=== PATIENT | female | born 1990 | race Caucasian/White ===

== ENCOUNTER 2016-11-25 02:49 | Emergency (ER) | payer OTHER ==
[2016-11-25] MEDS ORDERED: HYDROmorphone HCL CARPU-JECT 1 MG/1 ML DISP.SYRIN IVPUSH ONE ×2 (03:16→04:20)
[2016-11-25] MEDS ORDERED: ONDANSETRON 4 MG/2 ML VIAL IVPUSH ONE (03:16)
[2016-11-25] MEDS ORDERED: HYDROmorphone HCL CARPU-JECT 1 MG/1 ML DISP.SYRIN ONE ×2 (03:28→04:35)
[2016-11-25] MEDS ORDERED: ONDANSETRON 4 MG/2 ML VIAL ONE ×2 (03:29→04:35)
[2016-11-25 03:47] LABS: BASOPHIL 0.5 % (0-2.0); EOSINOPHIL 0.5 % (0-4.5); MCH 30.3 pg (25.7-33.7); MCHC 35.4 g/dl (32.0-36.0); MEAN CELL VOLUME 85.7 fl (80-96); MEAN PLT VOLUME 8.5 fl (7.5-11.1); NEUTROPHILS 79.6 % (42.8-82.8); PLATELET COUNT 292 K/MM3 (134-434); RDW 12.3 % (11.6-15.6); WHITE BLOOD COUNT 12.3 K/mm3 (4.0-10.0)
[2016-11-25 04:08] LABS: ALK PHOS 55 U/L (45-117); ANION GAP 9 (8-16); BILIRUBIN,TOTAL 0.4 mg/dL (0.2-1.0); CALCIUM 9.4 mg/dL (8.5-10.1); CO2 27 mmol/L (21-32); COCKROFT - GAULT 119.9435; CREATININE 0.6 mg/dL (0.55-1.02); GLUCOSE,RANDOM 114 mg/dL (74-106); SGOT/AST 19 U/L (15-37); SGPT/ALT 27 U/L (12-78); TOT PROT 7.8 g/dl (6.4-8.2)
--- NOTE | 2016-11-25 04:17 | PDOC ---
[id number] 4d STOMACH PAIN/VOMITING Time Seen by Provider: 11/25/16 03:15 - History of Present Illness Initial Comments: 11/25/16 03:53 CHIEF COMPLAINT: vomiting HISTORY OF PRESENT ILLNESS: 26 yo F with no significant PMH presents to ED with vomiting and severe epigastric pain x 2 days. Patient states that two evenings ago she started vomiting after eating "normal things like chicken and rice." She states the pain feels like it is going up and down her stomach, and that she had one episode of diarrhea yesterday but none today. She has been vomiting "constantly all day" today, "too many times to count", last episode after arrival here in the ED. Last LMP was one week ago. No recent travel or sick contacts. PAST MEDICAL HISTORY: Denies past medical history FAMILY HISTORY: Denies SOCIAL HISTORY: Denies tobacco, alcohol, illicit drug use. SURGICAL HISTORY: Denies ALLERGIES: No known drug allergies REVIEW OF SYSTEMS General/Constitutional: Denies fever or chills. Denies weakness, weight change. HEENT: Denies change in vision. Denies ear pain or discharge. Denies sore throat. Cardiovascular: Denies chest pain or shortness of breath. Respiratory: Denies cough, wheezing, or hemoptysis. Gastrointestinal: Vomiting x 3 days. One episode of diarrhea yesterday. Denies rectal bleeding. Genitourinary: Denies dysuria, frequency, or change in urination. Musculoskeletal: Denies joint or muscle swelling or pain. Denies neck or back pain. Skin and breasts: Denies rash or easy bruising. PHYSICAL EXAM General Appearance: Well-appearing, appropriately dressed. No apparent distress , no intoxication. HEENT: EOMI, PERRLA, normal ENT inspection, normal voice, TMs normal, pharynx normal. No conjunctival pallor. No photophobia, scleral icterus. Respiratory/Chest: Lungs CTAB. Cardiovascular: RRR. S1, S2. Vascular Pulses: Dorsalis-Pedis (R): 2+, Dorsalis-Pedis (L): 2+ Gastrointestinal/Abdominal: Tenderness to epigastrum and LUQ. Normal bowel sounds. Abdomen soft, non-distended. No organomegaly, pulsatile mass, guarding, hernia, hepatomegaly, splenomegaly. Musculoskeletal/Extremities: Normal inspection. FROM of all extremities, normal capillary refill. Pelvis Stable. No CVA tenderness. No tenderness to extremities, pedal edema, swelling, erythema or deformity. Integumentary: Appropriate color, dry, warm. No cyanosis, erythema, jaundice or rash Neurologic: epic willow specialist II-XII intact. Fully oriented, alert. Appropriate mood/affect. Motor strength 5/5. No appreciable EOM palsy, facial droop or sensory deficit. Past History - Past Medical History Allergies/Adverse Reactions: Allergies Allergy/AdvReac Type Severity Reaction Status Date / Time No Known Allergies Allergy Verified 11/25/16 03:15 Home Medications: Ambulatory Orders Famotidine [Pepcid -] 20 mg PO BID #14 tablet 11/25/16 Asthma: No Cancer: No Cardiac Disorders: No Diabetes: No HTN: No Seizures: No Thyroid Disease: No - Psycho/Social/Smoking Cessation Hx Suicidal Ideation: Yes Smoking History: Never smoked Hx Alcohol Use: No Drug/Substance Use Hx: No Substance Use Type: None Hx Substance Use Treatment: No *Physical Exam - Vital Signs Last Vital Signs Temp Pulse Resp BP Pulse Ox 97.5 F L 73 20 93/63 100 11/25/16 03:16 11/25/16 03:16 11/25/16 03:16 11/25/16 03:16 11/25/16 03:16 ED Treatment Course - LABORATORY CBC & Chemistry Diagram: 11/25/16 03:30 11/25/16 03:30 - ADDITIONAL ORDERS Additional order review: 11/25/16 03:30 RBC 4.54 D MCV 85.7 MCHC 35.4 RDW 12.3 D MPV 8.5 Neutrophils % 79.6 Lymphocytes % 15.1 Monocytes % 4.3 Eosinophils % 0.5 Basophils % 0.5 D - Medications Given in the ED: ED Medications Discontinued Medications Generic Name Dose Route Start Last Admin Trade Name Freq PRN Reason Stop Dose Admin Hydromorphone HCl 0.5 mg 11/25/16 03:16 11/25/16 03:39 Dilaudid Injection - IVPUSH 11/25/16 03:17 0.5 mg ONCE ONE Administration Ondansetron HCl 4 mg 11/25/16 03:16 11/25/16 03:39 Zofran Injection IVPUSH 11/25/16 03:17 4 mg ONCE ONE Administration Medical Decision Making - Medical Decision Making 11/25/16 05:23 26 yo F with no PMH presents to ED with epigastric pain and vomiting x 2 days. -CBC, CMP, lipase -UA, Ucx, UPreg -IVF, Zofran -Dilaudid 0.5 mg Patient reports pain subsided after administration of Dilaudid but is returning. -Dilaudid 0.5mg Labs: WBC 12.3, otherwise unremarkable. Patient is tearful and reports that she is still nauseous. Will scan patient due to intractable nature and severity of pain. -Reglan, Benadryl, Maalox, Pepcid -Abd and pelvis CT w/ contrast Awaiting CT. Case discussed in detail with oncoming emergency provider including history, physical exam and ancillary studies. In brief, this patient is being seen in the ED for a chief complaint of: abd pain, vomiting I have completed the initial assessment interview note and have ordered the following labs: CBC, CMP, lipase I have reviewed the following results: all labs Pending results: CT Plan for disposition as follows: pending Oncoming NPA Ervin has assumed care for the patient and will complete the evaluation and treatment. *DC/Admit/Observation/Transfer Diagnosis at time of Disposition: Epigastric abdominal pain Vomiting Qualifiers: Vomiting type: unspecified Vomiting Intractability: non-intractable Nausea presence: with nausea Qualified Code(s): R11.2 - Nausea with vomiting, unspecified - Discharge Dispostion Disposition: HOME Condition at time of disposition: Improved - Prescriptions Prescriptions: Famotidine [Pepcid -] 20 mg PO BID #14 tablet - Referrals Referrals: Oskar Farr MD [Staff Physician] - Tino Lock MD [Staff Physician] - - Patient Instructions Printed Discharge Instructions: [place] Diet, DI for Vomiting -- Adult, DI for Epigastric Pain Additional Instructions: Discharge Instructions: -Take medication as prescribed -Eat a bland diet until symptoms improve -Follow up with referred physicians as soon as possible -Return to the ER with any worsening or concerning symptoms
[2016-11-25 04:41] LABS: URINE APPEARANCE CLEAR; URINE BILIRUBIN NEGATIVE (NEGATIVE); URINE BLOOD NEGATIVE (NEGATIVE); URINE COLOR YELLOW; URINE GLUCOSE (UA) NEGATIVE (NEGATIVE); URINE KETONE 1+ (NEGATIVE); URINE LEUK ESTERASE NEGATIVE (NEGATIVE); URINE NITRITE NEGATIVE (NEGATIVE); URINE UROBILINOGEN NEGATIVE E.U./dl (0.2-1.0)
[2016-11-25 04:43] LABS: URINE PROTEIN 1+ (NEGATIVE)
[2016-11-25 04:47] LABS: URINE MUCUS MANY; URINE RBC 2 /hpf (0-3); URINE WBC 5 /hpf (3-5)
[2016-11-25] MEDS ORDERED: METOCLOPRAMIDE HCL INJECTION 10 MG/2 ML VIAL IVPB ONE (05:20)
[2016-11-25] MEDS ORDERED: FAMOTIDINE 20 MG/50 ML IVPB 50 ML IVPB ONE ×2 (05:20→05:33)
[2016-11-25] MEDS ORDERED: MAG HYDROX/AL HYDROX/SIMETH 30 ML UNIT-DOSE CUP PO ONE (05:26)
[2016-11-25] MEDS ORDERED: MAG HYDROX/AL HYDROX/SIMETH 30 ML UNIT-DOSE CUP ONE (05:33)
[2016-11-25] MEDS ORDERED: METOCLOPRAMIDE HCL INJECTION 10 MG/2 ML VIAL ONE (05:33)
[2016-11-25 07:04] VITALS: BP 104/57; PULSE 76; TEMP 97.6
--- NOTE | 2016-11-25 07:15 | PDOC ---
ED Treatment Course - LABORATORY CBC & Chemistry Diagram: 11/25/16 03:30 11/25/16 03:30 - ADDITIONAL ORDERS Additional order review: Laboratory Results 11/25/16 11/25/16 11/25/16 04:30 03:30 03:30 Sodium 140 Potassium 3.9 Chloride 104 Carbon Dioxide 27 D Anion Gap 9 BUN 12 D Creatinine 0.6 D Creat Clearance w eGFR > 60 Random Glucose 114 H D Calcium 9.4 Total Bilirubin 0.4 AST 19 ALT 27 Alkaline Phosphatase 55 Total Protein 7.8 Albumin 4.0 Lipase 200 Urine Color Yellow Urine Appearance Clear Urine pH 6.0 Ur Specific [place] 1.024 Urine Protein 1+ H Urine Glucose (UA) Negative Urine Ketones 1+ H Urine Blood Negative Urine Nitrite Negative Urine Bilirubin Negative Urine Urobilinogen Negative Ur Leukocyte Esterase Negative Urine RBC 2 Urine WBC 5 Ur Epithelial Cells Rare Urine Mucus Many Urine HCG, Qual Negative 11/25/16 03:30 RBC 4.54 D MCV 85.7 MCHC 35.4 RDW 12.3 D MPV 8.5 Neutrophils % 79.6 Lymphocytes % 15.1 Monocytes % 4.3 Eosinophils % 0.5 Basophils % 0.5 D - Medications Given in the ED: ED Medications Discontinued Medications Generic Name Dose Route Start Last Admin Trade Name Freq PRN Reason Stop Dose Admin Al Hydroxide/Mg Hydroxide 30 ml 11/25/16 05:26 11/25/16 05:50 Mylanta Oral Suspension - PO 11/25/16 05:27 30 ml ONCE ONE Administration Diphenhydramine HCl 25 mg 11/25/16 05:20 11/25/16 05:50 Benadryl Injection - IVPUSH 11/25/16 05:21 25 mg ONCE ONE Administration Hydromorphone HCl 0.5 mg 11/25/16 03:16 11/25/16 03:39 Dilaudid Injection - IVPUSH 11/25/16 03:17 0.5 mg ONCE ONE Administration Hydromorphone HCl 0.5 mg 11/25/16 04:20 11/25/16 04:44 Dilaudid Injection - IVPUSH 11/25/16 04:21 0.5 mg ONCE ONE Administration Famotidine/Sodium Chloride 50 mls @ 100 mls/hr 11/25/16 05:20 11/25/16 05:50 Pepcid 20 Mg Premixed Ivpb - IVPB 11/25/16 05:49 100 mls/hr ONCE ONE Administration Metoclopramide HCl 10 mg 11/25/16 05:20 11/25/16 05:50 Reglan Injection - IVPB 11/25/16 05:21 10 mg ONCE ONE Administration Ondansetron HCl 4 mg 11/25/16 03:16 11/25/16 03:39 Zofran Injection IVPUSH 11/25/16 03:17 4 mg ONCE ONE Administration Progress Note - Progress Note Progress Note: I have received report from JÚNIOR Joseph regarding this patient. Pt's initial chief complaint: vomiting and epigastric pain Pt's work up completed prior to sign out: labs, UA Pt treatment given from prior staff: Pepcid, reglan, benadryl, dilaudid Pt plan to be completed: Awaiting results of CT scan of abd/pelvis Dispo: Pending Medical Decision Making - Medical Decision Making A/P: 26 y/o afebrile female with no significant PMH c/o vomiting and epigastric pain x 2 days. The patient was initially evaluated by JÚNIOR Joseph. Labs and UA completed. Pt currently sleeping. Awaiting results of CT scan of abd/pelvis. CT scan abd/pelvis IMPRESSION: No acute pathology identified. No mass of inflammatory process seen. Left adnexal cyst measuring 2.4 x 1.8cm. No free fluid seen. The patient is asking for something to drink. The patient passed PO challenge without vomiting or recurrence of pain. Provided all results. Will discharge to home with rx for pepcid. Suggested bland diet until symptoms improve and PCP follow up. Pt instructed to return to the ER with any worsening or concerning symptoms. The patient verbalizes understanding of all instructions, has no further questions and is awaiting discharge. *DC/Admit/Observation/Transfer Diagnosis at time of Disposition: Epigastric abdominal pain Vomiting Qualifiers: Vomiting type: unspecified Vomiting Intractability: non-intractable Nausea presence: with nausea Qualified Code(s): R11.2 - Nausea with vomiting, unspecified - Discharge Dispostion Disposition: HOME Condition at time of disposition: Improved - Prescriptions Prescriptions: Famotidine [Pepcid -] 20 mg PO BID #14 tablet - Referrals Referrals: Oskar Farr MD [Staff Physician] - Tino Lock MD [Staff Physician] - - Patient Instructions Printed Discharge Instructions: DI for Epigastric Pain, DI for Vomiting -- Adult, [place] Diet Additional Instructions: Discharge Instructions: -Take medication as prescribed -Eat a bland diet until symptoms improve -Follow up with referred physicians as soon as possible -Return to the ER with any worsening or concerning symptoms
== END 2016-11-25 10:04 | disposition home or self-care (01) ==
LOC: JER 02:49
PROC: 3E033GC Introduction of Other Therapeutic Substance into Peripheral Vein, Percutaneous Approach (ICD-10-PCS; principal; 2016-11-25)
PROC: 3E033GC Introduction of Other Therapeutic Substance into Peripheral Vein, Percutaneous Approach (ICD-10-PCS; 2016-11-25)
PROC: 3E033NZ Introduction of Analgesics, Hypnotics, Sedatives into Peripheral Vein, Percutaneous Approach (ICD-10-PCS; 2016-11-25)
DX: R10.13 Epigastric pain (principal)
CPT/HCPCS: 36415; 74177-TC; 80053; 81003; 81015; 83690; 84703; 85025; 87086; 96365; 96375; 99282-25

== ENCOUNTER 2017-11-02 04:30 | Inpatient (IN) | payer OTHER ==
[~2017-11-02 04:30] MED LIST: DEXTROSE 5%-LACTATED RINGERS 1,000 ML IV SCH
[2017-11-02 05:32] LABS: BASO % 0.4 % (0-2.0); EOS % 0.7 % (0-4.5); HEMATOCRIT 32.2 % (32.4-45.2); HEMOGLOBIN 11.1 GM/dL (10.7-15.3); LYMPH % 16.5 % (8-40); MCH 30.1 pg (25.7-33.7); MCHC 34.5 g/dl (32.0-36.0); MEAN CELL VOLUME 87.4 fl (80-96); MEAN PLT VOLUME 9.8 fl (7.5-11.1); MONO % 6.2 % (3.8-10.2); NEUT % 76.2 % (42.8-82.8); PLATELET COUNT 174 K/MM3 (134-434); RBC 3.69 M/mm3 (3.60-5.2); RDW 13.6 % (11.6-15.6); WHITE BLOOD COUNT 10.8 K/mm3 (4.0-10.0)
[2017-11-02 05:44] LABS: PROTHROMBIN TIME (PATIENT) 11.3 SEC (9.98-11.88)
[2017-11-02 05:46] LABS: ACTIVATED PTT 26.9 SECONDS (26.9-34.4)
[2017-11-02 05:53] LABS: ANION GAP 13 (8-16); BLOOD UREA NITROGEN 8 mg/dL (7-18); CALCIUM 8.6 mg/dL (8.5-10.1); CHLORIDE 105 mmol/L (98-107); CO2 20 mmol/L (21-32); CREATININE 0.5 mg/dL (0.55-1.02); GLUCOSE,RANDOM 159 mg/dL (74-106); POTASSIUM 3.7 mmol/L (3.5-5.1); SODIUM 138 mmol/L (136-145)
[2017-11-02 05:57] VITALS: BMI 25.0
[2017-11-02] MEDS ORDERED: PROMETHAZINE HCL 25 MG/1 ML VIAL IVPB ONE (06:00)
[2017-11-02] MEDS ORDERED: BUTORPHANOL TARTRATE 1 MG/ML VIAL IVPB ONE (06:00)
[2017-11-02] MEDS ORDERED: BUTORPHANOL TARTRATE 1 MG/ML VIAL ONE ×2 (06:07)
[2017-11-02] MEDS ORDERED: PROMETHAZINE HCL 25 MG/1 ML VIAL ONE (06:07)
[2017-11-02] MEDS ORDERED: TUBERCULIN PPD 5 TU/0.1ML SYRINGE (IN PATIENT USE ONLY) ID ONE (09:00)
[2017-11-02] MEDS ORDERED: CITRIC ACID/SODIUM CITRATE 30 ML UNIT-DOSE CUP PO ONE (09:45)
[2017-11-02] MEDS ORDERED: ELECTROLYTE-148 SOLN 1,000 ML IV SCH (09:45)
--- NOTE | 2017-11-02 09:52 | HP ---
Past Medical History - Admission Chief Complaint: Labor pain History of Present Illness: 27 yo @ 38 weeks gestation, EDC 11/14/17, with prior , presents to L&D c/o labor pain. Patient desires . Upon examination cervix was found to be closed. She was given the option to go home until cervical dilation. Patient subsequently changed her mind and requested repeat . History Source: Patient, Family Member Limitations to Obtaining History: No Limitations - Past Medical History ...: 2 ...Para: 1 ...Term: 1 ...: 0 ...Spon : 0 ...Induced : 0 ...Multiple Gestation: 0 ...LMP: 02/07/17 ... Weeks Gestation by Dates: 38.2 ...EDC by Dates: 11/14/17 ...EDC by Sono: 11/14/17 - Past Surgical History Past Surgical History: Yes: Hx Myomectomy: No Hx Transabdominal Cerclage: No - Smoking History Smoking history: Never smoked Have you smoked in the past 12 months: No - Alcohol/Substance Use Hx Alcohol Use: No History of Substance Use: reports: None - Social History Usual Living Arrangement: Yes: With Spouse History of Recent Travel: No Home Medications - Allergies Allergies/Adverse Reactions: Allergies Allergy/AdvReac Type Severity Reaction Status Date / Time No Known Allergies Allergy Verified 11/02/17 05:15 - Home Medications Home Medications: Ambulatory Orders Vit No.130/Iron/Folic [ Vitamins] 1 each PO DAILY 11/02/17 Review of Systems - Review of Systems Constitutional: reports: No Symptoms Eyes: reports: No Symptoms HENT: reports: No Symptoms Neck: reports: No Symptoms Cardiovascular: reports: No Symptoms Respiratory: reports: No Symptoms Gastrointestinal: reports: No Symptoms Genitourinary: reports: Pain Breasts: reports: No Symptoms Reported Musculoskeletal: reports: No Symptoms Integumentary: reports: No Symptoms Neurological: reports: No Symptoms Endocrine: reports: No Symptoms Hematology/Lymphatic: reports: No Symptoms Psychiatric: reports: No Symptoms Pain Intensity: 7 Physical Exam - Maternity Vital Signs: Vital Signs Temperature 98.3 F 11/02/17 08:00 Pulse Rate 75 11/02/17 08:00 Respiratory Rate 20 11/02/17 08:00 Blood Pressure 106/55 11/02/17 08:00 O2 Sat by Pulse Oximetry (%) Constitutional: Yes: Well Nourished Eyes: Yes: Conjunctiva Clear HENT: Yes: Atraumatic Neck: Yes: Supple Cardiovascular: Yes: Regular Rate and Rhythm Lungs: Clear to auscultation - Abdominal Exam/OB Number of Fetuses: Single Presentation: Vertex Regularity: Irregular - Vaginal Exam/OB Vaginal Bleediing: Bloody Show Dilatation (cm): 0 Effacement (%): 50 Amniotic Membrane Status: Intact Station: -2 - Physical Exam Musculoskeletal: Yes: WNL Extremities: Yes: WNL ...Motor Strength: WNL Psychiatric: Yes: Alert, Oriented - Labs Lab Results: CBC, BMP 11/02/17 05:25 11/02/17 05:25 Problem List - Problems (1) Previous section complicating , antepartum condition or complication Code(s): O34.219 - MATERNAL CARE FOR UNSP TYPE SCAR FROM PREVIOUS DEL Assessment/Plan Previous in labor Admit to L&D Prep and shave Anesthesia to see patient
[2017-11-02] MEDS ORDERED: ePHEDrine SULFATE 50 MG/1 ML AMPULE ONE (10:09)
[2017-11-02] MEDS ORDERED: morphine SULFATE/Preservative Free 0.5 MG/ML (1cc Syringe) ONE (10:09)
[2017-11-02] MEDS ORDERED: PROPOFOL 20 ML ONE (10:10)
[2017-11-02] MEDS ORDERED: BUPIVACAINE 0.75% IN DEXTROSE/PF 2ML AMPULE NR ONE (10:12)
[2017-11-02] MEDS ORDERED: METHYLERGONOVINE MALEATE 0.2 MG/1 ML AMP IM PRN (11:01)
[2017-11-02] MEDS ORDERED: oxyCODONE HCL 5 MG TABLET PO PRN (11:01)
[2017-11-02] MEDS ORDERED: SIMETHICONE 80 MG TAB.CHEW (FP) PO PRN (11:01)
--- NOTE | 2017-11-02 11:04 | OP ---
Operative Note - Note: Operative Date: 11/02/17 Pre-Operative Diagnosis: Previous in labor Operation: Repeat Low Transverse Findings: Baby boy in OP position Post-Operative Diagnosis: Same as Pre-op Surgeon: Valarie Sood Wire Frame Lamp Shade Maker: Gregg Astudillo Anesthesia: Spinal Specimens Removed: Placenta Estimated Blood Loss (mls): 600
[2017-11-02] MEDS ORDERED: OXYTOCIN 20 UNITS in 0.9% NS 20 UNIT/1,000 ML INFUS.BAG IV SCH (11:15)
[2017-11-02] MEDS ORDERED: OXYTOCIN 20 UNITS in 0.9% NS 20 UNIT/1,000 ML INFUS.BAG IV ONE ×2 (11:18→19:35)
[2017-11-02] MEDS ORDERED: ONDANSETRON 4 MG/2 ML VIAL IVPUSH PRN (13:47)
[2017-11-02] MEDS ORDERED: morphine SULFATE/Preservative Free 0.5 MG/ML (1cc Syringe) EP ONE (13:47)
[2017-11-02] MEDS ORDERED: oxyCODONE HCL 5 MG TABLET PO ONE ×2 (15:00)
[2017-11-02] MEDS ORDERED: ACETAMINOPHEN 325 MG TABLET (FP) PO ONE ×2 (15:00)
[2017-11-02] MEDS ORDERED: IBUPROFEN 800 MG/8 ML IJ IVPB PRN (18:19)
[2017-11-02] MEDS: FERROUS SO4 325 MG TABLET (FP) PO SCH (22:12)
--- NOTE | 2017-11-03 07:17 | PN ---
Progress Note (SOAP) - Subjective Chief Complaint: Pt doing well - Current Medications Current Medications: Active Medications Bisacodyl (Dulcolax Suppository -) 10 mg RC PRN PRN PRN Reason: CONSTIPATION Diphenhydramine HCl (Benadryl Injection -) 25 mg IVPUSH Q4H PRN PRN Reason: Pruritis Ferrous Sulfate (Feosol -) 325 mg PO BID [facility] Last Admin: 11/02/17 22:12 Dose: Not Given Parenteral Electrolytes (Plasma-Lyte 148 -) 1,000 mls @ 125 mls/hr IV ASDIR [facility] Last Admin: 11/02/17 09:00 Dose: 125 mls/hr Oxytocin/Sodium Chloride (Normal Saline+20 Units Oxytocin -) 20 unit in 1,000 mls @ 125 mls/hr IV [facility] Last Admin: 11/02/17 11:20 Dose: 125 mls/hr Ibuprofen (Motrin -) 600 mg PO Q4H PRN PRN Reason: PAIN LEVEL 1 - 3 Ibuprofen (Caldolor Injection -) 800 mg IVPB Q6H PRN PRN Reason: FEVER Last Admin: 11/03/17 05:48 Dose: 800 mg Methylergonovine Maleate (Methergine Injection -) 0.2 mg IM Q4H PRN PRN Reason: Excessive Bleeding (L&D) Ondansetron HCl (Zofran Injection) 4 mg IVPUSH Q4H PRN PRN Reason: NAUSEA Oxycodone HCl (Roxicodone -) 5 mg PO Q4H PRN PRN Reason: PAIN LEVEL 4 - 6 Multivit/Folic Acid/Iron ( Vitamins (Sjr) -) 1 tab PO DAILY [facility] Simethicone (Mylicon -) 80 mg PO Q4H PRN PRN Reason: GAS - Objective Vital Signs: Vital Signs Temperature 98.9 F 11/03/17 05:55 Pulse Rate 90 11/03/17 05:55 Respiratory Rate 20 11/03/17 06:00 Blood Pressure 115/68 11/03/17 05:55 O2 Sat by Pulse Oximetry (%) 98 11/02/17 11:15 Constitutional: Yes: Well Nourished, No Distress Gastrointestinal: Yes: WNL, Normal Bowel Sounds ....Post : Yes: Uterus firm, Uterus non-tender Breast(s): Yes: WNL Musculoskeletal: Yes: WNL Extremities: Yes: WNL Wound/Incision: Yes: Clean/Dry, Dressing Dry and Intact Neurological: Yes: WNL, Alert, Oriented Labs Lab Results: CBC, BMP 11/02/17 05:25 11/02/17 05:25 Assessment/Plan POD1 CS Plan OOB Continue present managemment
[2017-11-03 09:06] LABS: BASO % 0.2 % (0-2.0); EOS % 0.6 % (0-4.5); HEMOGLOBIN 10.3 GM/dL (10.7-15.3); LYMPH % 8.3 % (8-40); MCH 29.4 pg (25.7-33.7); MCHC 33.4 g/dl (32.0-36.0); MEAN PLT VOLUME 9.2 fl (7.5-11.1); MONO % 6.9 % (3.8-10.2); PLATELET COUNT 169 K/MM3 (134-434); RBC 3.52 M/mm3 (3.60-5.2); RDW 13.8 % (11.6-15.6); WHITE BLOOD COUNT 15.8 K/mm3 (4.0-10.0)
[2017-11-03] MEDS: FERROUS SO4 325 MG TABLET (FP) PO SCH ×2 (10:05→21:04)
[2017-11-03] MEDS: PRENATAL VITAMINS W/ FOLIC ACID TABLET (FP) PO SCH (10:06)
[2017-11-03] MEDS ORDERED: BISACODYL 10 MG SUPP.RECT RC PRN (11:01)
[2017-11-03] MEDS: IBUPROFEN 600 MG TABLET (FP) PO PRN ×2 (11:56→19:40)
--- NOTE | 2017-11-03 13:36 | PN ---
Progress Note (short form) - Note Progress Note: Anesthesiology Post-op POD #1 s/p Repeat C/S under spinal. Pt. is doing well, has no complaints. She is able to ambulate and denies h/a. VSS. 27 y.o. s/p C/S with stable post-operative course. Continue management as per primary team.
[2017-11-03] MEDS ORDERED: DIPHTH,PERTUSS(ACELL),TET 0.5 ML DISP.SYRIN IM ONE (14:00)
--- NOTE | 2017-11-04 04:52 | PN ---
Post Progress Note - Subjective Subjective: 27 yo Para 2 status post repeat , seen and evaluated. Doing well. Post Day: 2 Type of Delivery: Repeat C/S Vital Signs: Vital Signs Temperature 98.2 F 11/03/17 21:00 Pulse Rate 97 H 11/03/17 21:00 Respiratory Rate 20 11/03/17 21:00 Blood Pressure 117/72 11/03/17 21:00 O2 Sat by Pulse Oximetry (%) 98 11/02/17 11:15 Breast Exam: Yes: Soft Uterus: Yes: Fundus Firm Incision: Yes: Dressing dry and intact Abdomen/GI: Yes: Abdomen soft, Tolerating PO Lochia: Yes: Rubra Lochia, amount: Small Extremities: Yes: Calves non-tender Perineum: Yes: Intact Activity: Ambulating - Labs Labs: CBC WBC 15.8 K/mm3 (4.0-10.0) H D 11/03/17 08:00 RBC 3.52 M/mm3 (3.60-5.2) L 11/03/17 08:00 Hgb 10.3 GM/dL (10.7-15.3) L 11/03/17 08:00 Hct 31.0 % (32.4-45.2) L 11/03/17 08:00 MCV 88.0 fl (80-96) 11/03/17 08:00 MCH 29.4 pg (25.7-33.7) 11/03/17 08:00 MCHC 33.4 g/dl (32.0-36.0) 11/03/17 08:00 RDW 13.8 % (11.6-15.6) 11/03/17 08:00 Plt Count 169 K/MM3 (134-434) 11/03/17 08:00 MPV 9.2 fl (7.5-11.1) 11/03/17 08:00 Neutrophils % 84.0 % (42.8-82.8) H 11/03/17 08:00 Lymphocytes % 8.3 % (8-40) D 11/03/17 08:00 Monocytes % 6.9 % (3.8-10.2) 11/03/17 08:00 Eosinophils % 0.6 % (0-4.5) 11/03/17 08:00 Basophils % 0.2 % (0-2.0) 11/03/17 08:00 Problem List - Problems (1) Previous section complicating , antepartum condition or complication Code(s): O34.219 - MATERNAL CARE FOR UNSP TYPE SCAR FROM PREVIOUS DEL (2) Status post repeat low transverse section Code(s): Z98.891 - HISTORY OF UTERINE SCAR FROM PREVIOUS SURGERY Assessment/Plan Status post repeat Ambulation Analgesia as needed Continue routine post op care
--- NOTE | 2017-11-04 04:55 | DS ---
Physical Exam-BUDGET COUNSELOR Vital Signs: Vital Signs Temperature 98.2 F 11/03/17 21:00 Pulse Rate 97 H 11/03/17 21:00 Respiratory Rate 20 11/03/17 21:00 Blood Pressure 117/72 11/03/17 21:00 O2 Sat by Pulse Oximetry (%) 98 11/02/17 11:15 Constitutional: Yes: Well Nourished Eyes: Yes: Conjunctiva Clear HENT: Yes: Atraumatic Neck: Yes: Supple Cardiovascular: Yes: Regular Rate and Rhythm Respiratory: Yes: Regular Gastrointestinal: Yes: Normal Bowel Sounds Pelvis: Yes: WNL External Genitalia: Yes: Normal Vaginal Exam: Yes: Normal Wound/Incision: Yes: Clean/Dry, Well Approximated, Dressing Dry and Intact Neurological: Yes: Alert, Oriented ...Motor Strength: WNL Psychiatric: Yes: Alert, Oriented Labs: CBC, BMP 11/03/17 08:00 11/02/17 05:25 Delivery - Delivery Type of Anesthesia: Spinal EBL (cc): 600 Delivery, Single - Stages of Labor Date of Delivery: 11/02/17 Time of Delivery: 10:35 Time Placenta Delivered: 10:36 - Condition of Drive In Teller/Field Marketing Lead Present: Yes Name: Eugenio Coles Gender: Male Weight: 5 lb 12 oz Position: OP Total Hours ROM (Hrs/Mins): 2mins - 1 Minute Total Score: 9 5 Minutes Total Score: 9 - [place] Feeding Plan Initial Plan: Elected not to breastfeed exclusively throughout hospitalization Discharge Summary Reason For Visit: ADMIT LABOR Current Active Problems Previous section complicating , antepartum condition or complication (Acute) Status post repeat low transverse section (Acute) Procedures: Principal: Repeat Low Transverse Hospital Course: Routine post op care Condition: Good - Instructions Diet, Activity, Other Instructions: Regular diet No driving, no lifting x 4 weeks F/U with MD in one week Disposition: HOME - Home Medications Comprehensive Discharge Medication List: Ambulatory Orders Vit No.130/Iron/Folic [ Vitamins] 1 each PO DAILY 11/02/17
[2017-11-04] MEDS: PRENATAL VITAMINS W/ FOLIC ACID TABLET (FP) PO SCH (10:00)
[2017-11-04] MEDS: FERROUS SO4 325 MG TABLET (FP) PO SCH ×3 (10:00→22:33)
[2017-11-04] MEDS ORDERED: DIPHTH,PERTUSS(ACELL),TET 0.5 ML DISP.SYRIN IM ONE (12:00)
[2017-11-04] MEDS: IBUPROFEN 600 MG TABLET (FP) PO PRN ×2 (12:35→20:18)
[2017-11-05 08:38] LABS: BASO % 0.6 % (0-2.0); EOS % 3.7 % (0-4.5); HEMATOCRIT 27.5 % (32.4-45.2); HEMOGLOBIN 9.5 GM/dL (10.7-15.3); LYMPH % 18.3 % (8-40); MCH 30.2 pg (25.7-33.7); MCHC 34.4 g/dl (32.0-36.0); MEAN CELL VOLUME 87.9 fl (80-96); MEAN PLT VOLUME 9.2 fl (7.5-11.1); MONO % 7.3 % (3.8-10.2); NEUT % 70.1 % (42.8-82.8); PLATELET COUNT 187 K/MM3 (134-434); RBC 3.13 M/mm3 (3.60-5.2); RDW 13.5 % (11.6-15.6); WHITE BLOOD COUNT 8.9 K/mm3 (4.0-10.0)
[2017-11-05] MEDS: FERROUS SO4 325 MG TABLET (FP) PO SCH (09:52)
[2017-11-05] MEDS: PRENATAL VITAMINS W/ FOLIC ACID TABLET (FP) PO SCH (09:52)
[2017-11-05] MEDS: IBUPROFEN 600 MG TABLET (FP) PO PRN (09:52)
[2017-11-05 12:48] VITALS: BP 110/74; PULSE 89; TEMP 98.1
--- NOTE | 2017-11-05 13:28 | PATH ---
Surgical Pathology Report Patient Name: BRITT BUSTILLO Med. Rec. 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 Specimen(s) Received PLACENTA Clinical History , 38.2 weeks, section 10/2012 for nonreassuring heart rate Final Diagnosis PLACENTA, DELIVERY: FOCALLY DISRUPTED THIRD TRIMESTER PLACENTA WITH ACUTE CHORIONITIS, AND 3 VESSEL UMBILICAL CORD. Electronically Signed Nick Choi M.D. Gross Description The specimen is received fresh labeled placenta and is a 448 gram, 18 x 15 x 1.5 cm. placenta with attached membranes and umbilical cord. The attached membranes are kraft-reilly translucent and insert marginally. The umbilical cord measures 27 cm. in length and averages 1.4 cm. in diameter. The cord inserts eccentrically, 5 cm. to the nearest margin. No true knots or strictures are identified. Cut surface of the umbilical cord reveals 3 vessels. The surface is kraft-blue with minimal fibrin deposition and appropriate caliber vessels. The maternal surface is red-brown with focal defects. Sectioning reveals red-brown, spongy parenchyma. No lesions are identified. Rand Butter sections are submitted in three cassettes as follows: 1- membrane rolls and umbilical cord; 2-3- full thickness sections of placenta. TEGAN/11/04/2017 baltazar/11/04/2017
== END 2017-11-05 12:40 | disposition home or self-care (01) | DRG 540 ==
LOC: JLDR 04:30 → J3W 12:06
PROVIDERS: ADMIT Obstetrics & Gynecology; ATTEND Obstetrics & Gynecology
PROC: 10D00Z1 Extraction of Products of Conception, Low, Open Approach (ICD-10-PCS; principal; 2017-11-02)
DX: O34.211 Maternal care for low transverse scar from previous cesarean delivery (principal); Z3A.38 38 weeks gestation of pregnancy; Z37.0 Single live birth
CPT/HCPCS: 36415; 80048; 85025; 85610; 85730; 86593; 86850; 86900; 86901; 87389; 88307-TC; 90715